=== PATIENT | female | born 1960 | race Caucasian/White ===

== ENCOUNTER → 2017-12-25 | Outpatient (CLI) | payer OTHER ==
[~2017-12-25] MED LIST: ASPIRIN81 M1 PO; MELATONIN1 MG PO; MULTIVITAMIN1 EAC2 PO; NEURONTIN600 MG PO; PAXIL20 MG PO; SYNTHROID50 MCG PO
== END | disposition home or self-care (01) ==
LOC: CDC 10:42
DX: Z01.810 Encounter for preprocedural cardiovascular examination (principal); G56.01 Carpal tunnel syndrome, right upper limb; M79.641 Pain in right hand; I49.8 Other specified cardiac arrhythmias
CPT/HCPCS: 93000